=== PATIENT | female | born 1985 | race Caucasian/White ===

== ENCOUNTER 2016-05-07 12:39 | Inpatient (IN) | payer OTHER ==
[~2016-05-07] VITALS: Ht 162.6 cm; Wt 80.3 kg
[~2016-05-07 12:39] MED LIST: NIFE20CA PO; NITR100 PO; PREN-12 PO
[2016-05-07] MEDS ORDERED: Lactated Ringer's 1,000 ML IV PRN (14:16)
[2016-05-07] MEDS ORDERED: Sodium Chloride LOK Flush 10 mL Syringe IVFLUSH PRN (14:20)
[2016-05-07] MEDS ORDERED: Methylergonovine 0.2 mg/mL Inj IM PRN ×2 (14:20→22:35)
[2016-05-07] MEDS ORDERED: Oxytocin 30 Units/500 mL LR 30 UNITS in IV Premix 1 EACH IV PRN ×3 (14:20→22:35)
[2016-05-07] MEDS ORDERED: Oxytocin 10 Unit/mL Inj IM PRN ×2 (14:20→22:35)
[2016-05-07] MEDS ORDERED: Hemorrhage Kit, Post Partum XX ONE ×2 (14:20→22:35)
[2016-05-07] MEDS ORDERED: Carboprost 250 mCg/mL Inj IM PRN ×2 (14:20→22:35)
[2016-05-07] MEDS ORDERED: fentaNYL-PF 50 mCg/mL 2 mL Inj IVPUSH PRN (14:20)
[2016-05-07] MEDS ORDERED: Lactated Ringer's 1,000 ML IV SCH ×3 (14:34→22:31)
[2016-05-07 14:52] LABS: Mean Corpuscular Hemoglobin 30.2 pg (27.0-35.0)
--- NOTE | 2016-05-07 16:30 | HP ---
[address] [address] HISTORY AND PHYSICAL PATIENT: BARBRA GRIFFIN : 1985 MR#: [id number] ADMIT: 05/07/2016 JOB ID: [id number] CHIEF COMPLAINT: The patient was sent for induction of labor. HISTORY OF PRESENTING ILLNESS: This is a 30-year-old 5, para 1-0-3-1 at 39 weeks and 1 day with expected date of delivery of May 12, 2016 dated by six week ultrasound. The patient presented today to care visit with no OB complaint. Patient was monitored with nonstress test for previous history of variable decelerations noted earlier in the , and she had been getting weekly nonstress tests, NST today heart tones baseline was 140, moderate variability, positive accelerations with variable decelerations. One deceleration to 130s lasted for 30 seconds. A 2nd deceleration to 130s and lasted for 50 seconds. Contractions were irregular. The patient reports good movement. No vaginal bleeding. No gush of fluid. Irregular contractions getting stronger for the last couple of days. PROBLEM LIST DURING THIS : 1. Smoker, smokes eight cigarettes per day. 2. Incidental finding of short cervix and anatomy scan. She was placed on vaginal progesterone, but the patient self-discontinued the medication after a few days of use. 3. History of spontaneous abortions x3 with no history of D and C. 4. History of kidney stones. 5. This was a threatened early in the secondary to vaginal bleeding at 11 weeks, resolved. PAST GYNECOLOGICAL HISTORY: Last menstrual period July 19, 2015. Patient uncertain about that date, irregular menstrual periods. The patient denies history of abnormal Pap smears. PAST OBSTETRIC HISTORY: * First was a spontaneous at 1-2 weeks of gestation. No medical intervention needed. * Second was a spontaneous at 1-2 weeks of her . No medical intervention needed. * Third was 2008, spontaneous at 6 weeks, vaginal misoprostol was used. Nosurgical intervention needed. * Fourth delivered January 11, 2011 at 39 weeks of gestation via spontaneous vaginal delivery under epidural anesthesia. Duration of labor was about 4 hours. Outcome: Male 8 pounds 11 ounces. This was complicated with oligohydramnios. Patient was induced. PAST MEDICAL HISTORY: History of kidney stones 2016, and a history of polycystic ovarian syndrome. PAST SURGICAL HISTORY: None. FAMILY HISTORY: Mother has kidney stones. Aunt diabetic. Breast cancer paternal grandmother. Family history of cancer, lung cancer and bone cancer. SOCIAL HISTORY: Currently smoker, eight cigarettes per day. Denies alcohol or illicit drug abuse. ALLERGIES: No known drug allergies. REVIEW OF SYSTEMS: A 10-point review of system is negative except for the items mentioned in the history of presenting illness. PHYSICAL EXAMINATION: Alert, oriented to time, place, and person. Vital signs: Temperature 97.8 Fahrenheit, pulse 84, respiratory rate 20, blood pressure 100/68, weight 176.5, height 64 inches, BMI 30.3. Head is normocephalic, atraumatic. Neck is supple. Chest: Equal air entry bilaterally. No added sounds. Cardiovascular: Regular rate and rhythm, S1 plus S2 plus zero. Abdomen gravid, estimated weight 7 pounds 8 ounces. Lower extremity +1 edema bilaterally. Cervical exam: Cervix is 4 cm dilated, 80%, -1, mid-position, soft, membranes intact, cephalic presentation, Cordova's score 10. NST at the office today heart tones baseline was 140, moderate variability, positive accelerations with variable decelerations. One deceleration to 130s lasted for 30 seconds. A 2nd deceleration to 130s and lasted for 50 seconds. Contractions were irregular. LABS: On admission, white blood cell count 10.1, hemoglobin 11.8, hematocrit 34.8, platelets 300. labs: Blood type O positive. Antibody screening negative at eight weeks, rubella immune, RPR negative, hepatitis B surface antigen negative, HIV screen nonreactive, quad screen negative. Urine culture screen negative. Diabetes screening at 28 weeks was elevated 176, three hours glucose tolerance test within normal limits at 29 weeks. Fasting was 74, at one hour was 158, two hours was 85, three hours was 76. Hemoglobin A1c on September 25, 2015 was 5.1. Chlamydia and gonorrhea screening negative on September 15, 2015. GBS screening is negative on April 06, 2016. Pap smear within normal limits and HPV negative October 26, 2015. Hematocrit was 34% at 28 weeks. ASSESSMENT: This is 30-year-old 5, para 1-0-3-1 at 39 weeks and 1 day with variable heart tone decelerations at term, group B strep negative, smoker. PLAN: The patient was offered induction of labor for favorable cervix and for the heart tones variable deceleration which has been an issue since 34-35 weeks of gestation with multiple visits to the hospital for prolonged monitoring and multiple ultrasound for COLLETTE. The patient now has a favorable cervix and continues to have the variable decelerations. Offered induction of labor. Risk and benefits and alternatives of induction were discussed with the patient in detail. Patient desires to proceed with induction of labor. All questions were answered. Increased risk of failed induction and increased risk of section was also reviewed. Informed consent was signed. The patient desires to proceed with induction. Will start pitocin then will AROM when having regular contractions pattern. MTDD
[2016-05-07] MEDS ORDERED: Lactated Ringer's 500 ML IV ONE (19:11)
--- NOTE | 2016-05-07 19:13 | PCM.HPANE ---
Patient Data Surgeon Admitting Provider:Missy Londono MD Attending Provider:Missy Londono MD Primary Care Physician:Missy Londono MD Other Provider:Tana Carrero Anesthesia Reason for Visit Term Induction TERM INDUCTION Ht/WT & BMI Body Mass Index Allergies Coded Allergies: No Known Allergies (Verified Allergy, Unknown, 04/06/16) Past Anesthesia History Anesthesia History: Denies:: Anesthesia Reactions, Fam Anesthesia Reaction, Fam Malignant Hypertherm, Malignant Hyperthermia Diabetes History Hx Diabetes?: No Medications Active Scripts Nitrofurantoin Monohyd/M-Cryst (MacroBid)100 Mg [id number] Mg PO BID #14 CAPSULE Ref 0 Prov:Missy Londono MD 04/06/16 Nifedipine 20 Mg [id number] Mg PO every 6 hours PRN contractions #8 CAPSULE Ref 0 Prov:Missy Londono MD 04/06/16 Reported Medications Vit W-Ca,Fe,FA(<1 mg) ( Formula)1 Each Tablet1 Each PO 10/22/15 History History of ENT Problems?: No Hx of Heart Problems?: No Cardiovascular History: Denies:: Congestive Heart Failure Hypertension Hx of Respiratory Problem?: No Respiratory History: Denies:: Oxygen Administration Tuberculosis Use of C-PAP Machine Hx Neurologic Problems?: No Hx of GI Problems?: No Hx of Problems?: Yes Hx Musculoskeletal Problems?: No Hx of Psycho/Social Problems?: No Hx Surgeries?: No Hx Any Other Health Problems?: No Other History: Denies:: Cancer Hospitalization Thyroid Disease History Blood Transfusions: Denies:: Blood Transfusions Hx Diabetes: No Hx Alcohol Use: NoHx Substance Use: No Smoking Status: Current Every Day Smoker Have You Smoked inLast 12 mo: Yes Stop/Bang Risk Assessment Category Category 1A: Patient has history of documented sleep apnea, and HAS NOT received any narcotic, sedative or anesthesia administration during this stay. Category 1B: Patient has history of documented sleep apnea, and HAS received any narcotic , sedative or anesthesia administration during this stay Category 2: Patient has SUSPECTED Obstructive Sleep Apnea, and HAS received any narcotic , sedative or anesthesia administration during this stay. Category 3: Patient has SUSPECTED Obstructive Sleep Apnea and HAS NOT received narcotic, sedative or anesthesia administration during this stay. Category 4: Outpatient in Procedural Areas with known sleep apnea or who screen positive for High Risk via the STOP/BANG questionnaire. Exam Exam General Appearance: Alert, Oriented X3, Cooperative HEENT/AIRWAY: MP 2, Mouth Opening (from) Lungs: Clear to Auscultation Heart: Exam Unremarkable Meds/Labs/Diagnostics Admission Meds Current Medications Lactated Ringer's (Lr) 1,000 ml @ 125 mls/hr Q8H IV Last administered on t 19:10; Start 05/07/16 at 14:34 Labs Test 05/07/16 14:25 05/07/16 16:58 White Blood Count 10.1th/mm3 (3.8-10.1) Red Blood Count 3.91mil/mm3 (3.90-5.20) Hemoglobin 11.8g/dL (12.0-15.6) Hematocrit 34.8% (35.0-46.0) Mean Corpuscular Volume 89.0fL (81-100) Mean Corpuscular Hemoglobin 30.2pg (27.0-35.0) Mean Corpuscular Hemoglobin Concent 33.9% (32.0-37.0) Red Cell Distribution Width 13.4% (12.3-15.4) Platelet Count 300bil/L (150-400) Urine Opiates Screen Negative Urine Methadone Screen Negative Urine Barbiturates Screen Negative Urine Amphetamines Screen Negative Urine Benzodiazepines Screen Negative Urine Cocaine Metabolite Screen Negative Urine Cannabinoids Screen Negative Plan Impression Patient chart reviewed, patient interviewed and anesthestic plan with risks, benefits, and alternatives discussed, and informed consent obtained. ASA Physical Status: ASA2 Mod Systemic Disease Anesthetic Plan: Epidural Bene/Risks/Altern/Consents: Yes HP Complete Prior to Induction: Yes Tom Frye MD May 07, 2016 19:13
[2016-05-07] MEDS ORDERED: Ondansetron 2 mg/mL 2 mL Inj IVPUSH PRN (19:15)
[2016-05-07] MEDS ORDERED: fentaNYL 2 mCg/mL-Bupiv 0.125% 100 ML EPIDURAL SCH (19:15)
[2016-05-07] MEDS ORDERED: EPHEDrine Sulfate 50 mg/mL Inj IVPUSH PRN (19:15)
[2016-05-07] MEDS ORDERED: Atropine 1 mg/10 mL (Code) Syringe IVPUSH PRN (19:15)
[2016-05-07] MEDS ORDERED: fentaNYL 2 mCg/mL-Bupivicaine 0.125% 100 mL Premix EPIDURAL ONE (19:16)
--- NOTE | 2016-05-07 19:50 | PCM.ANEP1 ---
Post Anesthesia Phase 1 PACU Phase 1 Assessment Anesthetic Administered: Epidural Level of Alertness: Awake, talking RICHARDS's with Equal Strength: Yes Pain: Yes Nausea or Vomiting: No Oxygen Delivery: Room Air Lungs: Normal Air Movement Tom Frye MD May 07, 2016 19:50
[2016-05-07] MEDS ORDERED: Benzocaine (Dermoplast) 20% 60 Gm Spray TOPICAL PRN (22:35)
[2016-05-07] MEDS ORDERED: Witch Hazel-Glycerin Pads TOPICAL PRN (22:35)
[2016-05-07] MEDS ORDERED: LANOlin HPA 7 Gm Ointment TOPICAL PRN (22:35)
[2016-05-08 07:21] LABS: Mean Corpuscular Hemoglobin 30.1 pg (27.0-35.0); Mean Corpuscular Volume 89.7 fL (81-100)
[2016-05-08] MEDS ORDERED: Ascorbic Acid 500 mg Tablet PO SCH (08:00)
[2016-05-08] MEDS ORDERED: Lactated Ringer's 1,000 ML IV SCH (08:23)
[2016-05-08] MEDS ORDERED: oxyCODONE-Acetamin 5-325 mg Tablet PO PRN (08:25)
[2016-05-08] MEDS ORDERED: Oxytocin 10 Unit/mL Inj IM PRN (08:25)
[2016-05-08] MEDS ORDERED: Methylergonovine 0.2 mg/mL Inj IM PRN (08:25)
[2016-05-08] MEDS ORDERED: Hemorrhage Kit, Post Partum XX ONE (08:25)
[2016-05-08] MEDS ORDERED: Carboprost 250 mCg/mL Inj IM PRN (08:25)
--- NOTE | 2016-05-08 08:27 | PCM.DIOB ---
Obstetrical Disch Instruction Date of Service: May 08, 2016 Dates of Hospitalization Date of Hospital Admission May 07, 2016 at 13:57 Providers Admitting Physician: Missy Londono MD Primary Care Physician: Missy Londono MD Attending Physician: Missy Londono MD Discharge Diagnosis Discharge Diagnosis Normal vaginal Delivery Problems: Diet Discharge Diet: No restrictions Activity Discharge Activity-General: Pelvic Rest for 6 weeks, No lifting >15 pounds for 2 weeks Dressing and Incisional Care Hygiene: May shower, NO bathtub, hot tub or whirlpool, Perineal care, Sitz bath , Dermoplast spray, Witch [place] pads Follow Up Plan Follow-up Provider (F9): Missy Londono MD Follow-up appointment: Weeks (Two) Call your provider for: Fever or Chills, Shortness of breath, Heavy vaginal bleeding, Heavy bleeding, Epigastric pain, Excessive constipation, Vaginal discomfort, Red painful breasts, Other (Headache, change in vision, one leg swollen more then the other or change in color or painful to touch. ) Missy Londono MD May 08, 2016 08:27
[2016-05-08] MEDS ORDERED: OXYC1TAB24 PO (08:30)
[2016-05-08] MEDS ORDERED: IBUP-1827 PO (08:30)
[2016-05-08] MEDS ORDERED: DOCU-41 PO (08:30)
[2016-05-08 10:26] VITALS: BP 104/55; PULSE 70; RESP 16
[2016-05-08 11:00] VITALS: BP 104/55; PULSE 70; RESP 16
--- NOTE | 2016-05-09 17:32 | PCM.DC.OB ---
Obstetrical Discharge Summary Date of Service May 09, 2016 Date of hospital admission May 07, 2016 at 13:57 Date of Discharge: May 08, 2016 Providers Admitting Physician: Andrade Hernandez MD Primary Care Physician: Andrade Hernandez MD Attending Physician: Andrade Hernandez MD Hospital Course: This is 30-year-old 5, para 2-0-3-2 was admitted at 39 weeks and 1 day for induction of labor for variable heart tone decelerations at term , group B strep negative, smoker. Status post normal vaginal delivery on 05/07/16. COMPLICATED WITH: 1. Smoker, smokes eight cigarettes per day. 2. Incidental finding of short cervix and anatomy scan. She was placed on vaginal progesterone, but the patient self-discontinued the medication after a few days of use. 3. History of spontaneous abortions x3 with no history of D and C. 4. History of kidney stones. 5. This was a threatened early in the secondary to vaginal bleeding at 11 weeks, resolved. OUTCOME: [place] (Female), Cord (3 Vessel), Weight (3389 grams/7lb 8oz), Presentation (Vertex), 1 minute (8), 5 minutes (9). DISCHARGE DAY EXAM: day number 1, patient is ambulating, tolerating regular diet without nausea or vomiting and voiding without difficulty. Pain was well controlled. No chest pain, no headache or change in vision. VS: reviewed and stable. General: Alert, Oriented X3 Lungs: Clear to Auscultation, Clear to Percussion Heart: Regular Rate/Rhythm, Normal S1, Normal S2 Abdomen: Fundus firm Extremities: No tenderness/swelling, Edema 1+ Lochia: normal. LABS: Laboratory Tests 72 Hours Test 05/07/16 14:25 05/07/16 16:58 05/08/16 07:05 White Blood Count 10.1th/mm3 (3.8-10.1) 14.0th/mm3 (3.8-10.1) Red Blood Count 3.91mil/mm3 (3.90-5.20) 3.69mil/mm3 (3.90-5.20) Hemoglobin 11.8g/dL (12.0-15.6) 11.1g/dL (12.0-15.6) Hematocrit 34.8% (35.0-46.0) 33.1% (35.0-46.0) Mean Corpuscular Volume 89.0fL (81-100) 89.7fL (81-100) Mean Corpuscular Hemoglobin 30.2pg (27.0-35.0) 30.1pg (27.0-35.0) Mean Corpuscular Hemoglobin Concent 33.9% (32.0-37.0) 33.5% (32.0-37.0) Red Cell Distribution Width 13.4% (12.3-15.4) 13.5% (12.3-15.4) Platelet Count 300bil/L (150-400) 273bil/L (150-400) Urine Opiates Screen Negative Urine Methadone Screen Negative Urine Barbiturates Screen Negative Urine Amphetamines Screen Negative Urine Benzodiazepines Screen Negative Urine Cocaine Metabolite Screen Negative Urine Cannabinoids Screen Negative labs: Blood type O positive. Antibody screening negative at eight weeks, rubella immune, RPR negative, hepatitis B surface antigen negative, HIV screen nonreactive, quad screen negative. Urine culture screen negative. Diabetes screening at 28 weeks was elevated 176, three hours glucose tolerance test within normal limits at 29 weeks. Fasting was 74, at one hour was 158, two hours was 85, three hours was 76. Hemoglobin A1c on September 25, 2015 was 5.1. Chlamydia and gonorrhea screening negative on September 15, 2015. GBS screening is negative on April 06, 2016. Pap smear within normal limits and HPV negative October 26, 2015. Hematocrit was 34% at 28 weeks. Disposition: home. Discharge Condition: stable. Diet Discharge Diet: No restrictions Activity Discharge Activity-General: Pelvic Rest for 6 weeks (no sex, no tampon and no douching), Balance rest and activity, No lifting >10 pounds for 4-6 weeks Dressing and Incision Care Hygiene: May shower Follow Up Plan Follow-up Provider (F9): Andrade Hernandez MD Follow-up appointment: in 2 Weeks and then in 6 weeks for post- visit. Call your provider for: fever or chills, shortness of breath, heavy vaginal bleeding, heavy bleeding, epigastric pain, excessive constipation, vaginal discomfort, red painful breasts, other (leg swelling, pain, nausea and vomiting , headache or change in vision.) Docusate Sodium (Colace) 100 Mg Capsule 100 MG PO DAILY Prescribed by: ANDRADE HERNANDEZ MD Ibuprofen (Ibuprofen) 600 Mg Tablet 600 MG PO Q6H PRN PRN For Mild Pain Prescribed by: ANDRADE HERNANDEZ MD Vit W-Ca,Fe,FA(<1 mg) ( Formula) 1 Each Tablet 1 EACH PO ( Reported) Last Taken: Unknown Dose on 05/06/16 1200 oxyCODONE-Acetaminophen 5-325 mg ( oxyCODONE-Acetaminophen 5-325 mg) 1 Each Tablet 1-2 TAB PO Q4H PRN PRN For Pain Prescribed by: ANDRADE HERNANDEZ MD Discontinued Medications Nifedipine (Nifedipine) 20 Mg Capsule 20 MG PO every 6 hours PRN PRN contractions Prescribed by: ANDRADE HERNANDEZ MD Nitrofurantoin Monohyd/M-Cryst (MacroBid) 100 Mg Capsule 100 MG PO BID Prescribed by: MD Spring MOYA Omaima A MD May 09, 2016 17:32
--- NOTE | 2016-05-10 03:34 | OP ---
[address] [address] OPERATIVE REPORT PATIENT: BARBRA GRIFFIN : 1985 MR#: [id number] ADMIT: 05/07/2016 JOB ID: [id number] DATE OF SURGERY: 05/07/2016 PROCEDURE: Spontaneous vaginal delivery. SURGEON: Missy Londono MD. PREOPERATIVE DIAGNOSIS(ES): Intrauterine at 39 w1d, with variable heart tone decelerations noted on nonstress test. POSTOPERATIVE DIAGNOSIS(ES):Intrauterine at 39 w1d, with variable heart tone decelerations noted on nonstress test, delivered. ATHLETIC DIRECTOR: None. ANESTHESIA: Epidural. ESTIMATED BLOOD LOSS: 200 mL. COMPLICATIONS: None. PROCEDURE: This is a 30 years old 5, now para 2-0-3-2, who presented for induction of labor at 39 weeks and 1 day for variable heart tone decelerations noted on nonstress test done in the office. Patient has been getting NST monitoring once or twice a week since 34-35 weeks of gestation, with multiple hospital visits and multiple prolonged monitoring hospital visits. Cervix was favorable at admission with Cordova score of 10. Cervix was 4 cm dilated, 80% effaced, -1 with intact membranes at admission. Induction was started with Pitocin after having regular contractions. Artificial rupture of membranes was performed at 18:56 on May 07, 2016. The patient progressed in labor to deliver at 22:15 on May 07, 2016. Delivered a female in cephalic presentation under epidural anesthesia over intact perineum. No nuchal cord. Shoulders delivered without difficulty. was placed on the maternal abdomen. Delayed cord clamp was performed after one minute. Apgars were 8 at one minute and 9 at five minutes. Infant weight 7 pounds and 8 ounces, equivalent to 3389 g. Placenta delivered spontaneously intact with a three-vessel cord. Fundal massage was started. Oxytocin was started. Uterus was firm and bleeding was minimal at the end of the procedure. All instrument, needle and sponge counts were correct x2. I, Missy Londono MD was present and scrubbed for the entire procedure. [facility]
== END 2016-05-08 14:00 | disposition home or self-care (01) | DRG 775 ==
LOC: FBC 13:57
PROVIDERS: ADMIT Obstetrics & Gynecology; ATTEND Obstetrics & Gynecology
PROC: 10E0XZZ Delivery of Products of Conception, External Approach (ICD-10-PCS; principal; 2016-05-07)
PROC: 10907ZC Drainage of Amniotic Fluid, Therapeutic from Products of Conception, Via Natural or Artificial Opening (ICD-10-PCS; 2016-05-07)
DX: O76 Abnormality in fetal heart rate and rhythm complicating labor and delivery (principal); F17.200 Nicotine dependence, unspecified, uncomplicated; O99.334 Smoking (tobacco) complicating childbirth; Z3A.39 39 weeks gestation of pregnancy; Z37.0 Single live birth

== ENCOUNTER 2016-07-14 10:35 | Emergency (ER) | payer OTHER ==
[~2016-07-14] VITALS: Ht 165.1 cm; Wt 72.7 kg
[~2016-07-14 10:35] MED LIST changes: +DOCU-41 PO; +IBUP-1827 PO; -NIFE20CA PO; -NITR100 PO; +OXYC1TAB24 PO
[2016-07-14 10:47] VITALS: BP 121/82; RESP 18; O2SAT 96
--- NOTE | 2016-07-14 11:09 | ED.REPORT ---
HPI-URI / Cough / Cold Date of Service July 14, 2016 ED Provider: History of Present Illness: 31 y/o female here for sore throat and fever 2 days. No runny nose, no cough, no nausea or vomiting. Has been this sick with similar symptoms. She has trouble swallowing because of pain. She is 2 months Nursing Notes Stated Complaint: THROAT PAIN Chief Complaint: ENT & Mouth Nursing Notes Reviewed: Yes Allergies: Coded Allergies: No Known Allergies (Verified Allergy, Unknown, 04/06/16) Scheduled Docusate Sodium (Colace) 100 Mg Capsule 100 MG PO DAILY Penicillin V Potassium (Penicillin V Potassium) 500 Mg Tablet 500 MG PO TID Scheduled PRN Ibuprofen (Ibuprofen) 600 Mg Tablet 600 MG PO Q6H PRN PRN For Mild Pain oxyCODONE-Acetaminophen 5-325 mg (oxyCODONE-Acetaminophen 5-325 mg) 1 Each Tablet 1-2 TAB PO Q4H PRN PRN For Pain Miscellaneous Medications Vit W-Ca,Fe,FA(<1 mg) ( Formula) 1 Each Tablet 1 EACH PO General Time Seen by MD: 11:04 Chief Complaint Sore throat Hx Obtained From: Patient Arrived By: Walk-in Onset Occurred: 2 days ago Symptom Duration: Since onset Location: : Tonsil left: Tonsil right Radiation: Does not radiate Severity: Current: Moderate Severity: Maximum: Severe Context: Immunization Status General: All up to date Past Medical History Past Medical History Notes: PCP: None (confirmed: 09/17/15) 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 Family History noncontributory Smoking History Current Every Day Smoker Social History Alcohol Use: Denies alcohol use Drug Use: Denies drug use Other Social History: Good social support, , Local resident Ambulatory Status Independent Review of Systems Basic Review of Systems Cardiovascular: No chest pain, No dyspnea on exertion, No orthopnea, No parox noct dyspnea, No palpitations : No dysuria, No frequency Psychiatric: Normal thought content Constitutional: Reports: Fatigue, Fever, Denies: Chills Eyes: Denies: Discharge bilateral, Eye pain bilateral, Redness bilateral, Visual loss bilateral Ears / Nose / Throat: Reports: Throat pain, Throat swelling, Denies: Ear drainage bilateral, Earache bilateral, Nasal congestion Respiratory: Denies: Dyspnea on exertion, Non-productive cough GI: Denies: Abdominal pain, Nausea, Vomiting Complete sys rev & neg: except as marked. Physical Exam Initial Vital Signs Vital Signs (First) Date Time Temp Pulse Resp B/P Pulse Ox O2 Delivery O2 Flow Rate FiO2 07/14/16 10:47 37.9 111 18 121/82 96 Room Air Head / Eyes: Atraumatic, Normocephalic, PERRL Cardiovascular: Regular rate & rhythm, Heart sounds normal, Intact distal pulses Skin: Warm, Dry, No cyanosis Neurologic: Alert, Oriented, Nonfocal Psychiatric: Mood/affect normal, Behavior normal, Normal thought content General/Constitutional: Awake, Alert, Well appearing ENT: Atraumatic, Airway patent, Mucous membranes moist, No peritonsillar abscess, No pooling of secretions, No trismus, Tympanic membs NL, Ext aud canal NL, Mastoid area NL, Nose exam NL, No sinus tenderness, No facial swelling Pharynx / Tonsils / Uvula: Positive: Tonsillar erythema L, Tonsillar erythema R , Tonsillar exudate L, Tonsillar exudate R, Tonsillar swelling L, Tonsillar swelling R Respiratory / Chest: Breath sounds NL, Breath sounds = bilat, No respiratory distress, No rales, No rhonchi, No wheezing, No retractions, No stridor significant tonsilar lymphadenopathy, shoddy posterior lymphadenopathy Re-Eval/Medical Decision Med Decision/Clinical Course Med Decision/Clinical Course: rapid strep positive, no signs of abscess. discussed red flags and when to return Discharge & Departure Shift Change Sign-Out Response to Therapy: Improved Impression: Primary Impression: Streptococcal sore throat Disposition: Home Discharge Condition Condition: Stable Patient Instructions: Strep Throat (ED) Additional Instructions: Take antibiotics as prescribed. Try to separate breast-feeding by 2 hours of taking pills possible to minimize affects . Requests water. Tylenol as needed for throat pain and swelling. If you notice unilateral pain and swelling worsening or your throat becomes so swollen and having trouble breathing return to ER immediately. If not feeling like you are improving in the next 24-48 hours return for recheck as well. Otherwise lots of rest. Urinary contagious until you are on antibiotic for 24 hours. Limit activities during this time Referrals: Missy Londono MD (PCP) EDSupervising Provider for APC: Meng Dee MD, Linnea K ARNP July 14, 2016 11:09
[2016-07-14] MEDS ORDERED: PENI500T PO (11:31)
== END 2016-07-14 11:45 | disposition home or self-care (01) ==
LOC: SED 10:35
DX: J02.0 Streptococcal pharyngitis (principal); F17.200 Nicotine dependence, unspecified, uncomplicated